=== PATIENT | female | born 1980 | race Caucasian/White ===

== ENCOUNTER 2018-04-13 12:49 | Outpatient (CLI) | payer BC ==
--- NOTE | 2018-04-13 15:51 | MMO ---
BILATERAL SCREENING MAMMOGRAM: Date: 04/13/18 HISTORY: Screening. COMPARISON: Screening mammogram dated 06/13/16. TECHNIQUE: Bilateral screening CC and MLO mammograms. This patient's mammogram was interpreted with the assistance of computer-aided detection. FINDINGS: The breasts are heterogeneously dense, which may obscure small masses. No suspicious mass, architectu ral distortion, or microcalcifications. IMPRESSION: BIRADS 1: Negative Continued annual mammographic screening is recommended. POS: DG
== END 2018-04-13 12:50 | disposition home or self-care (01) ==
LOC: SCSMAMMO 12:49
PROVIDERS: ATTEND Family Medicine
DX: Z12.31 Encounter for screening mammogram for malignant neoplasm of breast (principal)
CPT/HCPCS: 77067

== ENCOUNTER 2021-01-25 16:30 | Outpatient (CLI) | payer BC | END 2021-01-25 16:31 | disposition home or self-care (01) | LOC: SLEEPLAB 16:30 | PROVIDERS: ATTEND Otolaryngology Plastic Surgery within the Head & Neck | DX: G47.33 Obstructive sleep apnea (adult) (pediatric) (principal); R53.83 Other fatigue; K21.9 Gastro-esophageal reflux disease without esophagitis; G47.00 Insomnia, unspecified | CPT/HCPCS: 95806 ==

== ENCOUNTER 2021-03-12 19:00 | Outpatient (CLI) | payer BC | END 2021-03-12 19:01 | disposition home or self-care (01) | LOC: SLEEPLAB 19:00 | PROVIDERS: ATTEND Otolaryngology Plastic Surgery within the Head & Neck | DX: G47.33 Obstructive sleep apnea (adult) (pediatric) (principal); R53.83 Other fatigue; K21.9 Gastro-esophageal reflux disease without esophagitis; I49.8 Other specified cardiac arrhythmias; G47.00 Insomnia, unspecified; R06.83 Snoring; G47.10 Hypersomnia, unspecified | CPT/HCPCS: 95810 ==